=== PATIENT | female | born 1945 | race African-American/Black ===

== ENCOUNTER 2020-08-13 17:33 | Emergency (ER) | payer OTHER, MEDICAID ==
[~2020-08-13] VITALS: Ht 165.1 cm; Wt 57.0 kg
[2020-08-13] MEDS ORDERED: MORPHINE SULFATE 2 MG/ML CPJ (NOT FOR IM USE) IV ONE (19:00)
[2020-08-13] MEDS ORDERED: CLONIDINE 0.2MG TABLET PO ONE (19:00)
[2020-08-13 19:02] LABS: BASOPHILS % 0.8 % (0.0-2.0); EOSINOPHILS % 0.6 % (0.0-5.0); HEMATOCRIT. 40.9 % (36.0-48.0); HEMOGLOBIN. 13.8 g/dL (12.0-16.0); LYMPHOCYTES % 17.2 % (20.0-50.0); MEAN CORPUSCULAR HEMOGLOBIN 27.4 pg (28.0-32.0); MEAN CORPUSCULAR VOLUME 81.2 fL (81.0-99.0); MEAN PLATELET VOLUME 8.9 fl (7.4-10.4); MONOCYTES % 6.9 % (2.0-8.0); NEUTROPHILS % 74.5 % (40.0-76.0); PLATELET 260 x1000/uL (130-400); RED BLOOD CELL COUNT 5.04 mill/uL (4.2-5.4); RED CELL DISTRIBUTION WIDTH 14.3 % (11.6-14.6)
[2020-08-13 19:15] LABS: CHLORIDE 101 mEq/L (98-107)
[2020-08-13 22:25] LABS: CLARITY URINE TURBID (CLEAR); KETONES URINE NEGATIVE (NEGATIVE); LEUKOCYTE ESTERASE URINE 3+ (NEGATIVE); NITRITE URINE POSITIVE (NEGATIVE); OCCULT BLOOD URINE 2+ (NEGATIVE); PH URINE 7.5 (4.5-8.0); PROTEIN URINE 3+ (NEGATIVE); SPECIFIC GRAVITY URINE 1.017 (1.005-1.030)
[2020-08-13 22:26] LABS: COLOR URINE GREEN (YELLOW)
[2020-08-13] MEDS ORDERED: CEFTRIAXONE 1 G PREMIX 50 ML IV ONE (22:30)
[2020-08-13] MEDS ORDERED: KETOROLAC 15MG/ML VIAL IV NR (22:45)
[2020-08-13 23:30] VITALS: BP 168/82
== END 2020-08-13 23:44 | disposition home or self-care (01) ==
LOC: ER 18:18
DX: N39.0 Urinary tract infection, site not specified (principal)
CPT/HCPCS: 36415; 71045; 80053; 81003; 83880; 84484; 85025; 87077; 87086; 87186; 93005; 96365; 96375; 99285; J0696; J1885; J2270

== ENCOUNTER 2020-08-22 16:55 | Inpatient (IN) | payer OTHER, MEDICAID ==
[~2020-08-22] VITALS: Ht 165.1 cm; Wt 56.3 kg
[2020-08-22] MEDS ORDERED: VANCOMYCIN 1 G PREMIX 200 ML IV ONE (17:45)
[2020-08-22] MEDS ORDERED: SODIUM CHLORIDE 0.9% 1000ML BAG (SEPSIS BOLUS) IV ONE (17:45)
[2020-08-22] MEDS ORDERED: LEVOFLOXACIN 750MG PREMIX 150 ML IV ONE (17:45)
[2020-08-22 17:56] LABS: BASOPHILS % 0.6 % (0.0-2.0); EOSINOPHILS % 0.4 % (0.0-5.0); HEMATOCRIT. 40.2 % (36.0-48.0); HEMOGLOBIN. 13.2 g/dL (12.0-16.0); LYMPHOCYTES % 27.3 % (20.0-50.0); MEAN CORPUSCULAR HEMOGLOBIN 26.5 pg (28.0-32.0); MEAN CORPUSCULAR VOLUME 80.5 fL (81.0-99.0); MEAN PLATELET VOLUME 8.7 fl (7.4-10.4); NEUTROPHILS % 64.7 % (40.0-76.0); PLATELET 223 x1000/uL (130-400); RED BLOOD CELL COUNT 4.99 mill/uL (4.2-5.4); RED CELL DISTRIBUTION WIDTH 14.3 % (11.6-14.6)
[2020-08-22 18:05] LABS: INR 1.1; PROTHROMBIN TIME 11.4 sec (9.6-11.0)
[2020-08-22 18:08] LABS: CHLORIDE 103 mEq/L (98-107)
[2020-08-22 19:50] LABS: CLARITY URINE TURBID (CLEAR); COLOR URINE RED (YELLOW); KETONES URINE NEGATIVE (NEGATIVE); LEUKOCYTE ESTERASE URINE 3+ (NEGATIVE); NITRITE URINE POSITIVE (NEGATIVE); OCCULT BLOOD URINE 3+ (NEGATIVE); PH URINE 8.5 (4.5-8.0); PROTEIN URINE 3+ (NEGATIVE); SPECIFIC GRAVITY URINE 1.009 (1.005-1.030)
[2020-08-22] MEDS ORDERED: MORPHINE SULFATE 4 MG/ML CPJ (NOT FOR IM USE) IV ONE (20:00)
[2020-08-22 23:40] VITALS: BP 172/81
[2020-08-23] MEDS ORDERED: DEXTROSE 50% WATER 50ML SYRINGE IV PRN (00:30)
[2020-08-23] MEDS ORDERED: MORPHINE SULFATE 4 MG/ML CPJ (NOT FOR IM USE) IV PRN (00:30)
[2020-08-23] MEDS ORDERED: ONDANSETRON HCL 4MG/2ML INJ IV PRN (00:30)
[2020-08-23] MEDS ORDERED: ACETAMINOPHEN 325MG TABLET PO PRN (00:30)
[2020-08-23] MEDS: CLONIDINE 0.1MG TABLET PO PRN ×2 (01:04→17:11)
[2020-08-23] MEDS: HYDROCODONE/ACETAMINOPHEN 5/325MG TABLET PO PRN ×2 (01:05→18:16)
[2020-08-23] MEDS ORDERED: BENA5TAB6 PO (01:31)
[2020-08-23] MEDS ORDERED: APIX5TAB PO (01:31)
[2020-08-23] MEDS ORDERED: INSU100I28 SQ (01:31)
[2020-08-23 04:00] VITALS: BP 138/82
[2020-08-23] MEDS ORDERED: PIPERACILLIN/TAZOBACTAM 3.375 G/VIAL IV SCH (06:00)
[2020-08-23] MEDS: BLOOD SUGAR DIAGNOSTIC STRIP TEST SCH ×4 (06:28→20:51)
[2020-08-23 07:11] LABS: BASOPHILS % 0.4 % (0.0-2.0); EOSINOPHILS % 0.6 % (0.0-5.0); HEMATOCRIT. 38.2 % (36.0-48.0); HEMOGLOBIN. 12.2 g/dL (12.0-16.0); MEAN CORPUSCULAR HEMOGLOBIN 25.9 pg (28.0-32.0); MEAN CORPUSCULAR VOLUME 80.8 fL (81.0-99.0); MEAN PLATELET VOLUME 8.7 fl (7.4-10.4); MONOCYTES % 9.4 % (2.0-8.0); NEUTROPHILS % 64.6 % (40.0-76.0); PLATELET 210 x1000/uL (130-400); RED BLOOD CELL COUNT 4.72 mill/uL (4.2-5.4)
[2020-08-23] MEDS: INSULIN LISPRO 100 UNITS/ML SUBCUT SCH ×4 (07:20→20:51)
[2020-08-23 07:21] LABS: CHLORIDE 106 mEq/L (98-107)
[2020-08-23 07:59] VITALS: BP 142/64
[2020-08-23] MEDS ORDERED: BENAZEPRIL 5MG TABLET PO SCH (09:00)
[2020-08-23] MEDS ORDERED: ENOXAPARIN 40MG/0.4ML SYR SUBCUT SCH (09:00)
[2020-08-23] MEDS ORDERED: INSULIN GLARGINE UD 100 UNITS/ML SYR SUBCUT SCH (10:00)
[2020-08-23] MEDS ORDERED: INFLUENZA VACCINE 05/PF 0.5 ML VIAL IM ONE (10:00)
[2020-08-23 12:00] VITALS: BP 152/69
[2020-08-23] MEDS ORDERED: VANCOMYCIN 1 G PREMIX 200 ML IV SCH (12:00)
[2020-08-23 16:00] VITALS: BP 176/80
[2020-08-23] MEDS ORDERED: LEVOFLOXACIN 500MG PREMIX 100 ML IV SCH (17:00)
[2020-08-23 17:46] VITALS: BP 159/71
[2020-08-23] MEDS ORDERED: LEVOFLOXACIN 250MG PREMIX 50 ML IV SCH (18:00)
[2020-08-23 20:00] VITALS: BP 126/75
[2020-08-24] MEDS ORDERED: BENAZEPRIL 10MG TABLET PO SCH (09:00)
== END 2020-08-23 22:05 | disposition short-term general hospital (02) | DRG 872 ==
LOC: ER 16:55 → 6WST 20:07 → EDBEDREQSVC 20:24 → EDBEDREQTM 20:24 → EDBEDREQ 20:24 → CANRESERV 21:15 → ENRESERV 21:15
PROVIDERS: ADMIT Ophthalmology; ATTEND Ophthalmology
DX: A41.9 Sepsis, unspecified organism (principal); N30.00 Acute cystitis without hematuria; E11.9 Type 2 diabetes mellitus without complications; I10 Essential (primary) hypertension; Z85.038 Personal history of other malignant neoplasm of large intestine; Z88.0 Allergy status to penicillin; Z88.8 Allergy status to other drugs, medicaments and biological substances; Z79.899 Other long term (current) drug therapy
CPT/HCPCS: 36415; 71045; 74176; 80048; 80053; 81003; 82962; 83036; 83605; 84145; 84484; 85025; 87077; 87186; 87210; 93005; 99285; J1650; J1815; J1956; J2270; J3370; J7030; J7040